=== PATIENT | female | born 1970 | race Caucasian/White ===

== ENCOUNTER → 2021-07-19 | Day surgery (SDC) | payer OTHER ==
[~2021-07-19] VITALS: Ht 170.2 cm; Wt 81.8 kg
[~2021-07-19] MED LIST: FOLIC ACID1 MG PO; KETOROLAC TROME10 MG PO; MULTIPLE VITAM1 EAC1 PO; VITAMIN D3125 MCG PO; VITAMIN E200 UNI3 PO
[2021-07-19 07:00] LABS: HCT 38.4 % (37.0-47.0); HGB 12.9 g/dl (12.5-16.0); MCH 28.7 pg (25.0-31.0); MCHC 33.6 g/dL (32.0-36.0); MCV 85.5 fL (78.0-100.0); MPV 10.8 fL (6.0-9.5); RBC 4.49 M/uL (4.20-5.40); RDW 13.2 % (11.5-14.0); WBC 7.3 K/uL (4.0-10.5)
== END | disposition home or self-care (01) ==
LOC: FAS 06:24
PROVIDERS: Specialist
DX: N72 Inflammatory disease of cervix uteri (principal); R87.612 Low grade squamous intraepithelial lesion on cytologic smear of cervix (LGSIL); B97.7 Papillomavirus as the cause of diseases classified elsewhere; Z98.51 Tubal ligation status; Z98.891 History of uterine scar from previous surgery; Z80.3 Family history of malignant neoplasm of breast; Z87.891 Personal history of nicotine dependence
CPT/HCPCS: 36415; 84702; J0690; J1100; J1170; J1885; J2250; J2405; J2704; J3010; J7120